=== PATIENT | female | born 1990 | race Caucasian/White ===

== ENCOUNTER 2017-05-31 16:41 | Emergency (ER) | payer MEDICAID ==
[~2017-05-31] VITALS: Ht 165.1 cm; Wt 66.8 kg
[2017-05-31 16:45] VITALS: BP 133/83
[2017-05-31] MEDS ORDERED: DIPH,PERTUSS(ACELL),TET VAC/PF 0.5 ML IM-VACC ONE ×2 (17:00→17:15)
[2017-05-31 17:43] LABS: HCG UR OBC PASS
== END 2017-05-31 18:25 | disposition home or self-care (01) ==
LOC: ED 18:10
DX: L01.01 Non-bullous impetigo (principal); Z86.14 Personal history of Methicillin resistant Staphylococcus aureus infection
CPT/HCPCS: 81025; 90471; 90715

== ENCOUNTER 2017-06-22 18:08 | Emergency (ER) | payer MEDICAID ==
[~2017-06-22] VITALS: Ht 165.1 cm; Wt 66.0 kg
[2017-06-22] MEDS ORDERED: ONDANSETRON ODT 4 MG PO ONE (18:30)
[2017-06-22] MEDS ORDERED: HYDROmorphone 1 MG/ML, 1ML IM ONE (18:30)
[2017-06-22] MEDS ORDERED: HYDROmorphone 1 MG/ML, 1ML ONE (18:35)
[2017-06-22] MEDS ORDERED: ONDANSETRON ODT 4 MG ONE (18:35)
[2017-06-22] MEDS ORDERED: LORazepam 2 MG/ML, 1ML ONE (19:23)
[2017-06-22 19:28] VITALS: BP 135/87
[2017-06-22] MEDS ORDERED: LORazepam 2 MG/ML, 1ML IM ONE (19:30)
[2017-06-22 19:43] LABS: BLOOD UREA NITROGEN 11 mg/dL (7-18)
== END 2017-06-22 20:13 | disposition left against medical advice (07) ==
LOC: ED 20:07
DX: R51 Headache (principal); F11.90 Opioid use, unspecified, uncomplicated
CPT/HCPCS: 36415; 70450; 80048; 82040; 85025; 96372; 99285; J1170; J2060; Q0162

== ENCOUNTER 2017-11-30 19:08 | Emergency (ER) | payer MEDICAID ==
[~2017-11-30] VITALS: Ht 165.1 cm; Wt 74.3 kg
[2017-11-30 19:14] VITALS: BP 142/88
== END 2017-11-30 20:25 | disposition left against medical advice (07) ==
LOC: ED 19:30
DX: Z53.21 Procedure and treatment not carried out due to patient leaving prior to being seen by health care provider (principal)

== ENCOUNTER 2017-11-30 20:42 | Emergency (ER) | payer MEDICAID ==
[~2017-11-30] VITALS: Ht 152.4 cm; Wt 74.3 kg
[2017-11-30 20:45] VITALS: BP 142/88
[2017-11-30] MEDS ORDERED: LIDOCAINE 1%, 20ML ONE (21:18)
[2017-11-30] MEDS ORDERED: ACETAMINOPHEN 325 MG TABLET ONE (21:18)
[2017-11-30] MEDS ORDERED: LIDOCAINE 1%, 20ML SQ ONE (21:30)
[2017-11-30] MEDS ORDERED: ACETAMINOPHEN 325 MG TABLET PO ONE (21:30)
== END 2017-11-30 22:03 | disposition home or self-care (01) ==
LOC: ED 21:46
DX: L02.416 Cutaneous abscess of left lower limb (principal); F11.10 Opioid abuse, uncomplicated; F17.210 Nicotine dependence, cigarettes, uncomplicated
CPT/HCPCS: 10060; 99283; J3490